=== PATIENT | female | born 1960 | race Caucasian/White ===

== ENCOUNTER 2017-03-01 13:40 | Emergency (ER) | payer MEDICARE, OTHER ==
[~2017-03-01] VITALS: Ht 157.4 cm; Wt 104.3 kg
[2017-03-01 14:20] LABS: BASO # 0.1 10*3/uL (0.0-0.1); BASO % 0.9 % (0.0-1.0); EOS # 0.2 10*3/uL (0.0-0.4); EOS % 2.2 % (1.0-4.0); HEMATOCRIT 39.8 % (37.0-47.0); HEMOGLOBIN 12.4 g/dl (12.0-16.0); LYMPH # 2.2 10*3/uL (1.3-4.4); LYMPH % 25.4 % (27.0-41.0); MEAN CELL VOLUME 83.3 fl (81.0-99.0); MEAN CORPUSCULAR HGB 25.9 pg (27.0-31.0); MEAN CORPUSCULAR HGB CONC 31.2 g/dl (33.0-37.0); MEAN PLATELET VOLUME 10.3 fl (9.6-12.3); MONO # 0.5 10*3/uL (0.1-1.0); MONO % 5.2 % (3.0-9.0); NEUT # 5.7 10*3/uL (2.3-7.9); NEUT % 66.1 % (47.0-73.0); PLATELET COUNT AUTOMATED 279 10*3/uL (130-400); RED BLOOD COUNT 4.78 10*6/uL (4.10-5.10); RED CELL DISTRI WIDTH 13.9 % (0-14.5); WHITE BLOOD COUNT 8.6 10*3/uL (4.8-10.8)
[2017-03-01 14:28] LABS: ACT PARTIAL THROMBO TIME 24.6 SECONDS (20.8-31.5)
[2017-03-01 14:36] LABS: ALBUMIN 3.3 gm/dl (3.1-4.5); ALKALINE PHOSPHATASE 109 U/L (45-117); BUN 18 mg/dl (7-24); CHLORIDE 104 mmol/L (98-107); CREATININE 0.67 mg/dL (0.55-1.02); POTASSIUM 3.9 mmol/L (3.5-5.1); SGOT/AST 25 IU/L (3-35); SGPT/ALT 44 U/L (12-78); SODIUM 138 mmol/L (136-145); TOTAL PROTEIN 6.9 gm/dL (6.4-8.2)
[2017-03-01 14:40] LABS: TROPONIN I < 0.015 ng/ml (<0.045)
== END 2017-03-01 23:40 | disposition left against medical advice (07) ==
LOC: ED 13:40
PROVIDERS: Internal Medicine
DX: R07.9 Chest pain, unspecified (principal); R00.2 Palpitations; F17.200 Nicotine dependence, unspecified, uncomplicated

== ENCOUNTER 2017-05-13 18:31 | Emergency (ER) | payer MEDICARE, OTHER ==
[~2017-05-13] VITALS: Ht 157.4 cm; Wt 99.8 kg
== END 2017-05-13 21:28 | disposition home or self-care (01) ==
LOC: ED 18:31
DX: S80.01XA Contusion of right knee, initial encounter (principal); S70.01XA Contusion of right hip, initial encounter; S50.01XA Contusion of right elbow, initial encounter; S30.0XXA Contusion of lower back and pelvis, initial encounter; F17.200 Nicotine dependence, unspecified, uncomplicated; Z88.2 Allergy status to sulfonamides; Z88.5 Allergy status to narcotic agent; W10.8XXA Fall (on) (from) other stairs and steps, initial encounter; Y93.89 Activity, other specified; Y92.89 Other specified places as the place of occurrence of the external cause; Y99.8 Other external cause status

== ENCOUNTER 2018-03-16 18:48 | Emergency (ER) | payer MEDICARE, MEDICAID ==
[~2018-03-16] VITALS: Ht 160 cm; Wt 81.2 kg
[2018-03-16 19:17] LABS: BASO # 0.1 10*3/uL (0.0-0.1); BASO % 0.7 % (0.0-1.0); EOS # 0.2 10*3/uL (0.0-0.4); EOS % 2.3 % (1.0-4.0); HEMATOCRIT 42.7 % (37.0-47.0); HEMOGLOBIN 13.5 g/dl (12.0-16.0); LYMPH # 2.5 10*3/uL (1.3-4.4); LYMPH % 25.3 % (27.0-41.0); MEAN CELL VOLUME 85.6 fl (81.0-99.0); MEAN CORPUSCULAR HGB 27.1 pg (27.0-31.0); MEAN CORPUSCULAR HGB CONC 31.6 g/dl (33.0-37.0); MEAN PLATELET VOLUME 10.1 fl (9.6-12.3); MONO # 0.6 10*3/uL (0.1-1.0); NEUT # 6.4 10*3/uL (2.3-7.9); NEUT % 65.5 % (47.0-73.0); PLATELET COUNT AUTOMATED 317 10*3/uL (130-400); RED BLOOD COUNT 4.99 10*6/uL (4.10-5.10); RED CELL DISTRI WIDTH 13.9 % (0-14.5); WHITE BLOOD COUNT 9.7 10*3/uL (4.8-10.8)
[2018-03-16 19:32] LABS: ALKALINE PHOSPHATASE 80 U/L (45-117); BUN 13 mg/dl (7-24); CHLORIDE 103 mmol/L (98-107); CREATININE 0.64 mg/dL (0.55-1.02); POTASSIUM 3.5 mmol/L (3.5-5.1); SGOT/AST 14 IU/L (3-35); SGPT/ALT 16 U/L (12-78); SODIUM 137 mmol/L (136-145); TOTAL PROTEIN 6.9 gm/dL (6.4-8.2)
[2018-03-16 19:43] LABS: ACETAMINOPHEN (TYLENOL) < 5.0 ug/ml (10-30); ETHYL ALCOHOL < 3.0 mg/dl (<3)
[2018-03-16 20:33] LABS: BILIRUBIN NEGATIVE (NEGATIVE); BLOOD NEGATIVE (NEGATIVE); CLARITY CLEAR (CLEAR); COLOR YELLOW (YELLOW); GLUCOSE NEGATIVE (NEGATIVE); KETONE NEGATIVE (NEGATIVE); LEUKO ESTERASE NEGATIVE (NEGATIVE); NITRITE NEGATIVE (NEGATIVE); UROBILINOGEN 0.2 E.U./dl (0.2-1.0)
[2018-03-16 20:40] LABS: URINE AMPHETAMINES < 1000 (1000ng/ml); URINE BARBITURATES < 200 (200ng/ml); URINE BENZODIAZEPINES < 200 (200ng/ml); URINE CANNABINOIDS (THC) < 50 (50ng/ml); URINE COCAINE < 300 (300ng/ml); URINE METHADONE < 300 (300ng/ml); URINE OPIATES < 300 (300ng/ml)
[2018-03-16 20:41] LABS: URINE PHENCYCLIDINE < 25 (25ng/ml)
[2018-03-16 20:56] LABS: BACTERIA TRACE; EPITHELIAL CELLS 0-2; WBC 0-2 wbc/hpf (0-5)
[2018-03-16] MEDS ORDERED: DEXILANT60 M1 PO (21:48)
[2018-03-16] MEDS ORDERED: ROSUVASTATIN CA20 MG PO (21:49)
[2018-03-16] MEDS ORDERED: VENLAFAXINE H37.5 M5 PO (21:49)
[2018-03-16] MEDS ORDERED: AMITRIPTYLINE25 MG PO (21:50)
[2018-03-16] MEDS ORDERED: ROPINIROLE HYDRO3 MG PO (21:51)
[2018-03-16] MEDS ORDERED: COMBIVENT RESPIM4 GM INH (22:40)
[2018-03-16] MEDS ORDERED: POTASSIUM CITR10 ME1 PO (22:40)
[2018-03-16] MEDS ORDERED: CYCLOBENZAPRINE10 MG PO (22:44)
[2018-03-16] MEDS ORDERED: DICLOFENAC SOD50 MG PO (22:44)
[2018-03-16] MEDS ORDERED: DONEPEZIL HCL10 MG PO (22:45)
[2018-03-16] MEDS ORDERED: GLUCOPHAGE500 M1 PO (22:46)
[2018-03-16] MEDS ORDERED: JANUVIA100 MG PO (22:46)
[2018-03-16] MEDS ORDERED: BUPROPION HYDR100 MG PO (22:47)
== END 2018-03-16 23:31 | disposition home or self-care (01) ==
LOC: ED 18:48
PROVIDERS: Nurse Practitioner Family
DX: F32.9 Major depressive disorder, single episode, unspecified (principal); R45.851 Suicidal ideations; F03.90 Unspecified dementia, unspecified severity, without behavioral disturbance, psychotic disturbance, mood disturbance, and anxiety; Z88.2 Allergy status to sulfonamides; Z91.041 Radiographic dye allergy status; Z88.6 Allergy status to analgesic agent; Z88.5 Allergy status to narcotic agent

== ENCOUNTER 2018-03-16 22:17 | Inpatient (IN) | payer MEDICARE, MEDICAID ==
[~2018-03-16] VITALS: Ht 157.5 cm; Wt 78.5 kg
--- NOTE | ~2018-03-16 | DS ---
[place], [place] DISCHARGE SUMMARY NAME: CAROLE RODRIGUEZ UNIT #: [id number] ROOM: 312 DOCTOR: WHIT SMITH MD BIRTHDATE: [birth year] DOS: 03/19/2018 CHIEF COMPLAINT: "I am standing on shaky ground today." HISTORY OF PRESENT ILLNESS: This is a 57-year-old female who presented to the Emergency Room at [facility] with a complaint of increased depression. The patient reported to the Emergency Room physicians that she has been homeless and living in her car since 10/2017. She did admit to feeling more depressed than usual and feeling hopeless about the future. The patient ultimately was pink slipped well in the Emergency Room because of the depression, homelessness and possible suicidal ideation as well as a history of some cognitive decline. SUMMARY OF HOSPITAL COURSE: The patient was admitted to the hospital where routine screening examinations were done and they were essentially normal. The patient came in on a rather complicated psychotropic regimen that included 3 antidepressants being Effexor, Wellbutrin and Elavil. These were all stopped by Sil Garcia, nurse practitioner who instead simplified her regimen by starting her on Remeron 15 mg at bedtime. Additionally, her Aricept was discontinued in lieu of Exelon patch. The patient responded to this well and also did make some headway in being able to find housing as well as a possible job in [place] through a friend of hers that was able to also promise her housing if she moved to [place]. The patient had voiced a willingness and a readiness to return home stating that she had things to do, especially an appointment to fix her car, so she will be able to drive at the [place]. She convincingly denied suicidal thoughts, homicidal thoughts, or self-injurious thoughts and was very forward thinking in her plans. She also convincingly denied any medication side effects and noted good sleep and appetite, did not have sedation or somnolence. She was discharged then to return home on 03/19/2018. MENTAL STATUS AT DISCHARGE: She is alert and oriented with time gaps. Mood does seem to be strongly trending towards euthymia. Affect is more appropriate. There is no sophie or hypomania. There is no gross psychosis. Short-term memory has mild gaps, otherwise she is intact. PLAN: I will go ahead and print her scripts and send with her home. She will have aftercare per [facility]. [place], [place] DISCHARGE SUMMARY NAME: CAROLE RODRIGUEZ UNIT #: [id number] ROOM: 312 DOCTOR: WHIT SMITH MD BIRTHDATE: [birth year] WHIT SMITH MD CM:DISCHARG 4 3 WHIT SMITH MD 03/19/18922 interface
[~2018-03-16 22:17] MED LIST: AMITRIPTYLINE25 MG PO; DEXILANT60 M1 PO; ROPINIROLE HYDRO3 MG PO; ROSUVASTATIN CA20 MG PO; VENLAFAXINE H37.5 M5 PO
[2018-03-16] MEDS ORDERED: POTASSIUM CITR10 ME1 PO (22:40)
[2018-03-16] MEDS ORDERED: COMBIVENT RESPIM4 GM INH (22:40)
[2018-03-16] MEDS ORDERED: CYCLOBENZAPRINE10 MG PO (22:44)
[2018-03-16] MEDS ORDERED: DICLOFENAC SOD50 MG PO (22:44)
[2018-03-16] MEDS ORDERED: DONEPEZIL HCL10 MG PO (22:45)
[2018-03-16] MEDS ORDERED: GLUCOPHAGE500 M1 PO (22:46)
[2018-03-16] MEDS ORDERED: JANUVIA100 MG PO (22:46)
[2018-03-16] MEDS ORDERED: BUPROPION HYDR100 MG PO (22:47)
[2018-03-16 23:52] VITALS: BP 135/89
[2018-03-17 00:21] VITALS: BP 135/89
[2018-03-17 06:26] LABS: CHOLESTEROL 236 mg/dL (<200); HDL CHOLESTEROL 37 mg/dl (40-60); LDL CHOLESTEROL 173 mg/dL (9-159); TRIGLYCERIDES 131 mg/dl (<150); VLDL CHOLESTEROL 26 mg/dL (6-40)
[2018-03-17 07:32] VITALS: BP 127/73
[2018-03-17 07:42] LABS: VITAMIN D, 25-HYDROXY 42.2 ng/mL (30-100)
[2018-03-17 19:34] VITALS: BP 133/87
[2018-03-18 07:17] VITALS: BP 134/74
[2018-03-18 20:00] VITALS: BP 112/71
[2018-03-19 08:00] VITALS: BP 127/76
[2018-03-19] MEDS ORDERED: MIRTAZAPINE15 M2 PO (09:09)
[2018-03-19] MEDS ORDERED: RIVASTIGMINE1 EAC1 T (09:09)
== END 2018-03-19 13:46 | disposition home or self-care (01) | DRG 885 ==
LOC: 3N 22:17
PROVIDERS: Registered Nurse
DX: F33.2 Major depressive disorder, recurrent severe without psychotic features (principal); R45.851 Suicidal ideations; F03.91 Unspecified dementia, unspecified severity, with behavioral disturbance; D83.9 Common variable immunodeficiency, unspecified; E44.0 Moderate protein-calorie malnutrition; G43.909 Migraine, unspecified, not intractable, without status migrainosus; J44.9 Chronic obstructive pulmonary disease, unspecified; K21.9 Gastro-esophageal reflux disease without esophagitis; G25.81 Restless legs syndrome; E78.5 Hyperlipidemia, unspecified; G47.33 Obstructive sleep apnea (adult) (pediatric); E66.9 Obesity, unspecified; E11.8 Type 2 diabetes mellitus with unspecified complications; I10 Essential (primary) hypertension; Z96.651 Presence of right artificial knee joint; Z59.0 Homelessness; Z79.899 Other long term (current) drug therapy; Z88.2 Allergy status to sulfonamides; Z88.6 Allergy status to analgesic agent; Z88.8 Allergy status to other drugs, medicaments and biological substances; Z91.041 Radiographic dye allergy status; Z99.81 Dependence on supplemental oxygen; Z91.81 History of falling; Z98.891 History of uterine scar from previous surgery

== ENCOUNTER 2018-04-27 01:04 | Emergency (ER) | payer MEDICARE, MEDICAID ==
[~2018-04-27] VITALS: Ht 157.4 cm; Wt 72.6 kg
[~2018-04-27 01:04] MED LIST changes: +ANUSOL-HC25 MG R; +BUPROPION HYDR100 MG PO; +COLACE100 MG PO; +COMBIVENT RESPIM4 GM INH; +CYCLOBENZAPRINE10 MG PO; +DICLOFENAC SOD50 MG PO; +DONEPEZIL HCL10 MG PO; +GLUCOPHAGE500 M1 PO; +JANUVIA100 MG PO; +MIRTAZAPINE15 M2 PO; +POTASSIUM CITR10 ME1 PO; +RIVASTIGMINE1 EAC1 T
[2018-04-27] MEDS ORDERED: ATARAX,VISTARIL50 MG PO (02:28)
[2018-04-27] MEDS ORDERED: NYSTATIN CREAM15 GM T (02:30)
[2018-04-27] MEDS ORDERED: FLUCONAZOLE100 MG PO (02:30)
[2018-06-06] MEDS ORDERED: TESSALON PERLE100 MG PO (03:18)
== END 2018-04-27 03:03 | disposition home or self-care (01) ==
LOC: ED 01:04
DX: B35.3 Tinea pedis (principal); J44.9 Chronic obstructive pulmonary disease, unspecified; E11.9 Type 2 diabetes mellitus without complications; I10 Essential (primary) hypertension; E78.5 Hyperlipidemia, unspecified; E66.9 Obesity, unspecified; G43.909 Migraine, unspecified, not intractable, without status migrainosus; K21.9 Gastro-esophageal reflux disease without esophagitis; Z88.2 Allergy status to sulfonamides; Z88.6 Allergy status to analgesic agent; Z88.8 Allergy status to other drugs, medicaments and biological substances; Z79.899 Other long term (current) drug therapy; Z59.0 Homelessness

== ENCOUNTER 2018-05-04 22:48 | Inpatient (IN) | payer MEDICARE, MEDICAID ==
[~2018-05-04] VITALS: Ht 157.4 cm; Wt 78.2 kg
[~2018-05-04 22:48] MED LIST changes: +ATARAX,VISTARIL50 MG PO; +FLUCONAZOLE100 MG PO; +NYSTATIN CREAM15 GM T
[2018-05-04 22:51] VITALS: BP 132/62
[2018-05-05 00:02] LABS: BASO # 0.1 10*3/uL (0.0-0.1); BASO % 0.6 % (0.0-1.0); EOS # 0.2 10*3/uL (0.0-0.4); EOS % 1.2 % (1.0-4.0); HEMATOCRIT 45.4 % (37.0-47.0); HEMOGLOBIN 14.3 g/dl (12.0-16.0); LYMPH # 3.8 10*3/uL (1.3-4.4); LYMPH % 24.4 % (27.0-41.0); MEAN CELL VOLUME 85.3 fl (81.0-99.0); MEAN CORPUSCULAR HGB 26.9 pg (27.0-31.0); MEAN CORPUSCULAR HGB CONC 31.5 g/dl (33.0-37.0); MEAN PLATELET VOLUME 10.3 fl (9.6-12.3); MONO # 0.8 10*3/uL (0.1-1.0); MONO % 5.4 % (3.0-9.0); NEUT # 10.5 10*3/uL (2.3-7.9); NEUT % 68.1 % (47.0-73.0); PLATELET COUNT AUTOMATED 352 10*3/uL (130-400); RED BLOOD COUNT 5.32 10*6/uL (4.10-5.10); RED CELL DISTRI WIDTH 14.3 % (0-14.5); WHITE BLOOD COUNT 15.5 10*3/uL (4.8-10.8)
--- NOTE | 2018-05-05 00:09 | NUR ---
[place] 2.[address] DR DOMINGO NOTIFIED
[2018-05-05 00:14] LABS: BILIRUBIN NEGATIVE (NEGATIVE); BLOOD 3+ (NEGATIVE); CLARITY CLOUDY (CLEAR); COLOR YELLOW (YELLOW); GLUCOSE NEGATIVE (NEGATIVE); KETONE TRACE (NEGATIVE); LEUKO ESTERASE 3+ (NEGATIVE); NITRITE POSITIVE (NEGATIVE); SPECIFIC GRAVITY 1.015 (1.005-1.030); UROBILINOGEN 0.2 E.U./dl (0.2-1.0)
[2018-05-05 00:17] LABS: ALBUMIN 3.4 gm/dl (3.1-4.5); ALKALINE PHOSPHATASE 101 U/L (45-117); BUN 17 mg/dl (7-24); CHLORIDE 102 mmol/L (98-107); CREATININE 0.87 mg/dL (0.55-1.02); POTASSIUM 4.3 mmol/L (3.5-5.1); SGOT/AST 22 IU/L (3-35); SGPT/ALT 17 U/L (12-78); SODIUM 138 mmol/L (136-145); TOTAL PROTEIN 7.7 gm/dL (6.4-8.2)
[2018-05-05 00:21] LABS: WBC TNTC wbc/hpf (0-5)
[2018-05-05 00:22] LABS: BACTERIA 1+; RBC TNTC rbc/hpf (0-2)
[2018-05-05 01:03] VITALS: BP 121/71
--- NOTE | 2018-05-05 02:17 | NUR ---
MED LIST INCOMPLETE PT REVIEW BY PT RECALL
[2018-05-05 02:36] LABS: BASO # 0.1 10*3/uL (0.0-0.1); BASO % 0.7 % (0.0-1.0); EOS # 0.2 10*3/uL (0.0-0.4); EOS % 1.5 % (1.0-4.0); HEMATOCRIT 41.2 % (37.0-47.0); HEMOGLOBIN 12.9 g/dl (12.0-16.0); LYMPH % 21.7 % (27.0-41.0); MEAN CELL VOLUME 85.5 fl (81.0-99.0); MEAN CORPUSCULAR HGB 26.8 pg (27.0-31.0); MEAN CORPUSCULAR HGB CONC 31.3 g/dl (33.0-37.0); MEAN PLATELET VOLUME 9.9 fl (9.6-12.3); MONO # 0.8 10*3/uL (0.1-1.0); MONO % 5.9 % (3.0-9.0); NEUT # 9.5 10*3/uL (2.3-7.9); PLATELET COUNT AUTOMATED 293 10*3/uL (130-400); RED BLOOD COUNT 4.82 10*6/uL (4.10-5.10); RED CELL DISTRI WIDTH 14.2 % (0-14.5); WHITE BLOOD COUNT 13.6 10*3/uL (4.8-10.8)
[2018-05-05 02:46] LABS: ACT PARTIAL THROMBO TIME 25.4 SECONDS (20.8-31.5)
[2018-05-05 03:05] LABS: ALBUMIN 3.2 gm/dl (3.1-4.5); ALKALINE PHOSPHATASE 78 U/L (45-117); BUN 13 mg/dl (7-24); CHLORIDE 109 mmol/L (98-107); CHOLESTEROL 138 mg/dL (<200); CREATININE 0.66 mg/dL (0.55-1.02); FREE T4 1.06 ng/dl (0.76-1.46); HDL CHOLESTEROL 40 mg/dl (40-60); LDL CHOLESTEROL 71 mg/dL (9-159); PHOSPHOROUS 3.6 mg/dL (2.5-4.9); SGOT/AST 16 IU/L (3-35); SGPT/ALT 16 U/L (12-78); SODIUM 144 mmol/L (136-145); TOTAL PROTEIN 6.7 gm/dL (6.4-8.2); TRIGLYCERIDES 133 mg/dl (<150); VLDL CHOLESTEROL 27 mg/dL (6-40)
[2018-05-05 03:15] VITALS: BP 138/70
--- NOTE | 2018-05-05 03:15 | NUR ---
A 57, admitted to , under the services of DEEP Lopez DO with a diagnosis of PYELONEPHRITIS. Chief complaint is HEMATURIA. Patient arrived via bed from ER. Monitor applied. Initial assessment completed. Vital signs taken and recorded. DEEP LOPEZ DO notified of admission to the unit. Orders received. See assessment for past medical history, medications and allergies. Patient and/or family oriented to unit. [facility] visitation policy reviewed. Clothing/patient valuable form completed. GAMAL ATWOOD
--- NOTE | 2018-05-05 04:00 | NUR ---
DR TRENT NOTIFIED THAT PT MED REC IS UP TO DATE PER PT. PT IS ALERT WITH CONFUSION AND APPEARS UNSURE OF SOME OF HER MEDICATIONS. PHYSICIAN REQUESTS THAT AM NURSE CONTACT PT PHARMACY TO CONFIRM MEDICATIONS. WILL PASS ON TO AM NURSE.
[2018-05-05] MEDS ORDERED: RESTORIL15 MG PO (04:15)
[2018-05-05] MEDS ORDERED: AMITRIPTYLINE25 MG PO (04:15)
[2018-05-05 12:00] VITALS: BP 113/67
--- NOTE | 2018-05-05 15:15 | NUR ---
PT LEFT AMA
[2018-06-06] MEDS ORDERED: TESSALON PERLE100 MG PO (03:18)
== END 2018-05-05 15:15 | disposition left against medical advice (07) | DRG 872 ==
LOC: ED 22:48 → EDHOLD 05-05 01:59 → 4E 05-05 02:57
PROVIDERS: Emergency Medicine; Family Medicine; ADMIT Emergency Medicine
DX: A41.9 Sepsis, unspecified organism (principal); E44.0 Moderate protein-calorie malnutrition; N12 Tubulo-interstitial nephritis, not specified as acute or chronic; J44.9 Chronic obstructive pulmonary disease, unspecified; F03.90 Unspecified dementia, unspecified severity, without behavioral disturbance, psychotic disturbance, mood disturbance, and anxiety; K21.9 Gastro-esophageal reflux disease without esophagitis; E78.5 Hyperlipidemia, unspecified; R41.89 Other symptoms and signs involving cognitive functions and awareness; N20.0 Calculus of kidney; Z53.21 Procedure and treatment not carried out due to patient leaving prior to being seen by health care provider; G43.909 Migraine, unspecified, not intractable, without status migrainosus; G47.33 Obstructive sleep apnea (adult) (pediatric); G25.81 Restless legs syndrome; F17.210 Nicotine dependence, cigarettes, uncomplicated; E11.65 Type 2 diabetes mellitus with hyperglycemia; Z71.6 Tobacco abuse counseling; Z88.2 Allergy status to sulfonamides; Z88.5 Allergy status to narcotic agent; Z88.6 Allergy status to analgesic agent; Z88.8 Allergy status to other drugs, medicaments and biological substances; Z91.041 Radiographic dye allergy status; Z99.89 Dependence on other enabling machines and devices; Z68.31 Body mass index [BMI] 31.0-31.9, adult

== ENCOUNTER 2018-05-31 17:31 | Emergency (ER) | payer MEDICARE, MEDICAID ==
[~2018-05-31] VITALS: Ht 157.4 cm; Wt 72.6 kg
[~2018-05-31 17:31] MED LIST changes: +RESTORIL15 MG PO
[2018-05-31 18:21] LABS: BASO # 0.1 10*3/uL (0.0-0.1); BASO % 0.6 % (0.0-1.0); EOS # 0.3 10*3/uL (0.0-0.4); EOS % 1.9 % (1.0-4.0); HEMATOCRIT 42.2 % (37.0-47.0); HEMOGLOBIN 13.4 g/dl (12.0-16.0); LYMPH # 2.7 10*3/uL (1.3-4.4); LYMPH % 19.5 % (27.0-41.0); MEAN CELL VOLUME 85.1 fl (81.0-99.0); MEAN CORPUSCULAR HGB CONC 31.8 g/dl (33.0-37.0); MEAN PLATELET VOLUME 9.7 fl (9.6-12.3); MONO # 0.7 10*3/uL (0.1-1.0); MONO % 4.8 % (3.0-9.0); NEUT % 72.9 % (47.0-73.0); PLATELET COUNT AUTOMATED 331 10*3/uL (130-400); RED BLOOD COUNT 4.96 10*6/uL (4.10-5.10); RED CELL DISTRI WIDTH 14.5 % (0-14.5); WHITE BLOOD COUNT 13.7 10*3/uL (4.8-10.8)
[2018-05-31 18:46] LABS: ALBUMIN 3.3 gm/dl (3.1-4.5); ALKALINE PHOSPHATASE 97 U/L (45-117); BUN 16 mg/dl (7-24); CHLORIDE 103 mmol/L (98-107); CREATININE 0.64 mg/dL (0.55-1.02); POTASSIUM 4.2 mmol/L (3.5-5.1); SGOT/AST 19 IU/L (3-35); SGPT/ALT 30 U/L (12-78); SODIUM 137 mmol/L (136-145); TOTAL PROTEIN 7.1 gm/dL (6.4-8.2)
[2018-05-31] MEDS ORDERED: PROVENTIL HFA6.7 GM INH (19:12)
[2018-05-31] MEDS ORDERED: AVPAK AZITHROM250 MG PO (19:12)
[2018-05-31] MEDS ORDERED: PREDNISONE50 MG PO (19:12)
[2018-06-06] MEDS ORDERED: TESSALON PERLE100 MG PO (03:18)
== END 2018-05-31 19:16 | disposition home or self-care (01) ==
LOC: ED 17:31
PROVIDERS: Nurse Practitioner Family
DX: J20.9 Acute bronchitis, unspecified (principal); E11.9 Type 2 diabetes mellitus without complications; J44.9 Chronic obstructive pulmonary disease, unspecified; F17.200 Nicotine dependence, unspecified, uncomplicated; Z98.890 Other specified postprocedural states; Z96.641 Presence of right artificial hip joint; Z79.899 Other long term (current) drug therapy; Z88.5 Allergy status to narcotic agent; Z88.6 Allergy status to analgesic agent; Z88.8 Allergy status to other drugs, medicaments and biological substances; Z88.2 Allergy status to sulfonamides

== ENCOUNTER 2018-06-28 00:28 | Emergency (ER) | payer MEDICARE, MEDICAID ==
[~2018-06-28] VITALS: Ht 157.4 cm; Wt 77.1 kg
--- NOTE | ~2018-06-28 | EKG ---
[place], [place] ELECTROCARDIOGRAM REPORT NAME: CAROLE RODRIGUEZ UNIT #: [id number] ROOM: DOCTOR: EPIPHANY DRAFT REPORT BIRTHDATE: [birth year] [facility] Test Date: 2018-06-28 Test Time: 00:44:11 Pat Name: CAROLE RODRIGUEZ Department: Room: Gender: F Automatic Developer: Laura Weathers : 1960 Requested By: LORENE SHANNON Order Number: [id number] Reading MD: Torres Chu MD Measurements Intervals [place] Rate: 88 P: 61 WV: 152 QRS: 31 QRSD: 88 T: 20 QT: 345 QTc: 418 Interpretive Statements Sinus rhythm Baseline wander in lead(s) V4,V5,V6 Electronically Signed On 06-30-2018 7:00:57 PDT by Torres Chu MD CM:EKGRPT:ELECTROCARDIOGRAM REPORT [id number] LORENE SHANNON MD EPIPHANY DRAFT REPORT LORENE SHANNON MD
--- NOTE | ~2018-06-28 | EKG ---
[place], [place] ELECTROCARDIOGRAM REPORT NAME: CAROLE RODRIGUEZ UNIT #: [id number] ROOM: DOCTOR: EPIPHANY DRAFT REPORT BIRTHDATE: [birth year] [facility] Test Date: 2018-06-28 Test Time: 03:38:58 Pat Name: CAROLE RODRIGUEZ Department: er Room: 5 Gender: F Desizing Machine Offbearer: Dennise Martínez : 1960 Requested By: LORENE SHANNON Order Number: [id number] Reading MD: Torres Chu MD Measurements Intervals [place] Rate: 77 P: 74 OR: 154 QRS: 51 QRSD: 92 T: 14 QT: 365 QTc: 414 Interpretive Statements Sinus rhythm Nonspecific ST T changes Electronically Signed On 06-30-2018 7:01:16 PDT by Torres Chu MD CM:EKGRPT:ELECTROCARDIOGRAM REPORT [id number] LORENE SHANNON MD EPIPHANY DRAFT REPORT LORENE SHANNON MD
[~2018-06-28 00:28] MED LIST changes: +AVPAK AZITHROM250 MG PO; +PREDNISONE50 MG PO; +PROVENTIL HFA6.7 GM INH; +TESSALON PERLE100 MG PO
[2018-06-28 00:52] LABS: HEMATOCRIT 45.8 % (37.0-47.0); HEMOGLOBIN 14.4 g/dl (12.0-16.0); MEAN CELL VOLUME 85.9 fl (81.0-99.0); MEAN CORPUSCULAR HGB CONC 31.4 g/dl (33.0-37.0); MEAN PLATELET VOLUME 9.8 fl (9.6-12.3); PLATELET COUNT AUTOMATED 398 10*3/uL (130-400); RED BLOOD COUNT 5.33 10*6/uL (4.10-5.10); RED CELL DISTRI WIDTH 14.6 % (0-14.5); WHITE BLOOD COUNT 14.3 10*3/uL (4.8-10.8)
[2018-06-28 01:03] LABS: ACT PARTIAL THROMBO TIME 21.1 SECONDS (20.8-31.5)
[2018-06-28 01:09] LABS: ALKALINE PHOSPHATASE 91 U/L (45-117); BUN 23 mg/dl (7-24); CHLORIDE 100 mmol/L (98-107); CREATININE 0.62 mg/dL (0.55-1.02); POTASSIUM 4.3 mmol/L (3.5-5.1); SGOT/AST 12 IU/L (3-35); SGPT/ALT 17 U/L (12-78); SODIUM 139 mmol/L (136-145)
[2018-06-28 01:11] LABS: TROPONIN I < 0.015 ng/ml (<0.045)
[2018-06-28 01:25] LABS: BASOPHILS 2 % (0-1); PLATELET SUFFICIENCY NORMAL (NORMAL); TOTAL CELLS COUNTED 100 #CELLS
[2018-06-28] MEDS ORDERED: DEXILANT60 M1 PO (04:07)
== END 2018-06-28 04:19 | disposition home or self-care (01) ==
LOC: ED 00:28
PROVIDERS: Emergency Medicine Emergency Medical Services
DX: K21.9 Gastro-esophageal reflux disease without esophagitis (principal); J44.9 Chronic obstructive pulmonary disease, unspecified; E11.9 Type 2 diabetes mellitus without complications; E78.5 Hyperlipidemia, unspecified; I10 Essential (primary) hypertension; G43.909 Migraine, unspecified, not intractable, without status migrainosus; F17.200 Nicotine dependence, unspecified, uncomplicated; Z88.2 Allergy status to sulfonamides; Z88.6 Allergy status to analgesic agent; Z88.5 Allergy status to narcotic agent; Z88.8 Allergy status to other drugs, medicaments and biological substances; Z87.442 Personal history of urinary calculi; Z79.84 Long term (current) use of oral hypoglycemic drugs; Z79.899 Other long term (current) drug therapy

== ENCOUNTER 2020-05-05 22:50 | Emergency (ER) | payer MEDICARE, MEDICAID | END 2020-05-06 | disposition home or self-care (01) | LOC: ED 22:50 | DX: R06.02 Shortness of breath (principal); T50.905A Adverse effect of unspecified drugs, medicaments and biological substances, initial encounter; R07.89 Other chest pain; F32.9 Major depressive disorder, single episode, unspecified; E11.9 Type 2 diabetes mellitus without complications; I10 Essential (primary) hypertension; F03.90 Unspecified dementia, unspecified severity, without behavioral disturbance, psychotic disturbance, mood disturbance, and anxiety; J44.9 Chronic obstructive pulmonary disease, unspecified; F17.200 Nicotine dependence, unspecified, uncomplicated; Z88.2 Allergy status to sulfonamides; Z88.5 Allergy status to narcotic agent; Z88.6 Allergy status to analgesic agent; Z79.899 Other long term (current) drug therapy; Z79.2 Long term (current) use of antibiotics; Z98.890 Other specified postprocedural states; Z96.651 Presence of right artificial knee joint; Z87.442 Personal history of urinary calculi; Y92.89 Other specified places as the place of occurrence of the external cause ==

== ENCOUNTER → 2020-05-07 | Outpatient (CLI) | payer OTHER | END | disposition home or self-care (01) | LOC: COVID19 16:18 | PROVIDERS: ATTEND Internal Medicine | DX: Z20.822 Contact with and (suspected) exposure to COVID-19 (principal) ==

== ENCOUNTER → 2020-08-28 | Outpatient (CLI) | payer OTHER | END | disposition home or self-care (01) | LOC: COVID19 14:50 | PROVIDERS: ATTEND Ophthalmology | DX: Z01.812 Encounter for preprocedural laboratory examination (principal); Z20.822 Contact with and (suspected) exposure to COVID-19 ==

== ENCOUNTER → 2020-09-02 | Day surgery (SDC) | payer OTHER ==
[~2020-09-02] VITALS: Ht 157.4 cm; Wt 88.9 kg
[2020-09-02 06:45] VITALS: BP 156/86
[2020-09-02 08:04] VITALS: BP 116/86; BP 166/86
[2020-09-02 08:19] VITALS: BP 116/81
[2020-09-02 08:34] VITALS: BP 129/77
== END | disposition home or self-care (01) ==
LOC: SDC 08-28 09:30
PROVIDERS: ATTEND Ophthalmology
DX: H25.11 Age-related nuclear cataract, right eye (principal); F32.9 Major depressive disorder, single episode, unspecified; I10 Essential (primary) hypertension; E11.9 Type 2 diabetes mellitus without complications; F41.9 Anxiety disorder, unspecified; F17.210 Nicotine dependence, cigarettes, uncomplicated; Z98.890 Other specified postprocedural states; Z88.2 Allergy status to sulfonamides; Z88.5 Allergy status to narcotic agent; Z88.8 Allergy status to other drugs, medicaments and biological substances; Z79.899 Other long term (current) drug therapy

== ENCOUNTER → 2020-10-02 | Outpatient (CLI) | payer OTHER | END | disposition home or self-care (01) | LOC: COVID19 14:09 | PROVIDERS: ATTEND Ophthalmology | DX: Z01.812 Encounter for preprocedural laboratory examination (principal); Z20.822 Contact with and (suspected) exposure to COVID-19 ==

== ENCOUNTER → 2020-10-07 | Day surgery (SDC) | payer OTHER ==
[~2020-10-07] VITALS: Ht 157.4 cm; Wt 88.9 kg
[2020-10-07 07:10] VITALS: BP 134/67
[2020-10-07 07:59] VITALS: BP 133/67
[2020-10-07 08:14] VITALS: BP 141/75
[2020-10-07 08:28] VITALS: BP 138/72
== END | disposition home or self-care (01) ==
LOC: SDC 10-02 08:00
PROVIDERS: ATTEND Ophthalmology
DX: H25.12 Age-related nuclear cataract, left eye (principal); I10 Essential (primary) hypertension; E11.9 Type 2 diabetes mellitus without complications; F32.9 Major depressive disorder, single episode, unspecified; I25.2 Old myocardial infarction; J45.909 Unspecified asthma, uncomplicated; Z88.5 Allergy status to narcotic agent; Z88.6 Allergy status to analgesic agent; Z79.899 Other long term (current) drug therapy; Z86.73 Personal history of transient ischemic attack (TIA), and cerebral infarction without residual deficits

== ENCOUNTER → 2020-12-16 | Outpatient (CLI) | payer OTHER | END | disposition home or self-care (01) | LOC: LAB 14:59 | PROVIDERS: ATTEND Internal Medicine Critical Care Medicine | DX: R53.83 Other fatigue (principal); D64.9 Anemia, unspecified ==

== ENCOUNTER → 2021-02-09 | Outpatient (CLI) | payer OTHER ==
[2021-02-09 17:17] LABS: BASO # 0.1 10*3/uL (0.0-0.1); BASO % 0.7 % (0.0-1.0); EOS # 0.2 10*3/uL (0.0-0.4); EOS % 1.7 % (1.0-4.0); HEMATOCRIT 44.5 % (37.0-47.0); LYMPH # 3.1 10*3/uL (1.3-4.4); LYMPH % 29.2 % (27.0-41.0); MEAN CELL VOLUME 83.8 fl (81.0-99.0); MEAN CORPUSCULAR HGB 26.4 pg (27.0-31.0); MEAN CORPUSCULAR HGB CONC 31.5 g/dl (33.0-37.0); MEAN PLATELET VOLUME 9.8 fl (9.6-12.3); MONO # 0.6 10*3/uL (0.1-1.0); MONO % 5.2 % (3.0-9.0); NEUT # 6.6 10*3/uL (2.3-7.9); PLATELET COUNT AUTOMATED 351 10*3/uL (130-400); RED BLOOD COUNT 5.31 10*6/uL (4.10-5.10); RED CELL DISTRI WIDTH 14.4 % (0-14.5); WHITE BLOOD COUNT 10.5 10*3/uL (4.8-10.8)
[2021-02-09 17:29] LABS: ALKALINE PHOSPHATASE 93 U/L (45-117); BUN 13 mg/dl (7-24); CHLORIDE 105 mmol/L (98-107); CREATININE 0.62 mg/dL (0.55-1.02); LIPASE 315 U/L (73-393); POTASSIUM 4.2 mmol/L (3.5-5.1); SGOT/AST 15 IU/L (3-35); SGPT/ALT 27 U/L (12-78); SODIUM 138 mmol/L (136-145)
[2021-02-10 08:34] LABS: TOTAL PROTEIN 7.1 gm/dL (6.4-8.2)
== END | disposition home or self-care (01) ==
LOC: LAB 16:49
PROVIDERS: Internal Medicine Gastroenterology; ATTEND Nurse Practitioner Family
DX: R11.2 Nausea with vomiting, unspecified (principal); R10.9 Unspecified abdominal pain; K58.0 Irritable bowel syndrome with diarrhea; K21.9 Gastro-esophageal reflux disease without esophagitis; K57.92 Diverticulitis of intestine, part unspecified, without perforation or abscess without bleeding; K76.9 Liver disease, unspecified; K57.30 Diverticulosis of large intestine without perforation or abscess without bleeding; Z80.0 Family history of malignant neoplasm of digestive organs

== ENCOUNTER → 2021-02-15 | Outpatient (CLI) | payer OTHER | END | disposition home or self-care (01) | LOC: RAD 11:35 | PROVIDERS: ATTEND Internal Medicine | DX: J06.9 Acute upper respiratory infection, unspecified (principal) ==

== ENCOUNTER → 2021-05-10 | Outpatient (CLI) | payer OTHER | END | disposition home or self-care (01) | LOC: CARD 08:08 | PROVIDERS: ATTEND Internal Medicine Cardiovascular Disease | DX: G47.33 Obstructive sleep apnea (adult) (pediatric) (principal); R06.02 Shortness of breath; Z72.0 Tobacco use ==

== ENCOUNTER 2021-09-19 14:44 | Emergency (ER) | payer OTHER ==
[~2021-09-19] VITALS: Wt 99.8 kg
[2021-09-19 16:00] LABS: BASO # 0.1 10*3/uL (0.0-0.1); BASO % 0.7 % (0.0-1.0); EOS # 0.1 10*3/uL (0.0-0.4); EOS % 1.1 % (1.0-4.0); HEMATOCRIT 46.7 % (37.0-47.0); LYMPH # 1.8 10*3/uL (1.3-4.4); LYMPH % 14.9 % (27.0-41.0); MEAN CELL VOLUME 84.8 fl (81.0-99.0); MEAN CORPUSCULAR HGB CONC 30.6 g/dl (33.0-37.0); MEAN PLATELET VOLUME 9.8 fl (9.6-12.3); MONO # 0.6 10*3/uL (0.1-1.0); MONO % 4.8 % (3.0-9.0); NEUT # 9.5 10*3/uL (2.3-7.9); PLATELET COUNT AUTOMATED 323 10*3/uL (130-400); RED BLOOD COUNT 5.51 10*6/uL (4.10-5.10); RED CELL DISTRI WIDTH 13.4 % (0-14.5); WHITE BLOOD COUNT 12.2 10*3/uL (4.8-10.8)
[2021-09-19 16:13] LABS: BILIRUBIN Negative (Negative); BLOOD 1+ (Negative); CLARITY Clear (Clear); COLOR Yellow (Yellow); GLUCOSE 3+ (Negative); KETONE Trace (Negative); LEUKO ESTERASE Negative (Negative); NITRITE Negative (Negative); SPECIFIC GRAVITY 1.025 (1.001-1.030); UROBILINOGEN 0.2 E.U./dl (0.0-1.0)
[2021-09-19 16:15] LABS: ALKALINE PHOSPHATASE 117 U/L (45-117); BUN 17 mg/dl (7-24); CHLORIDE 101 mmol/L (98-107); POTASSIUM 4.2 mmol/L (3.5-5.1); SGOT/AST 14 IU/L (3-35); SGPT/ALT 19 U/L (12-78); SODIUM 138 mmol/L (136-145); TOTAL PROTEIN 6.7 gm/dL (6.4-8.2)
[2021-09-19 16:19] LABS: URINE AMPHETAMINES < 1000 (1000ng/ml); URINE BARBITURATES < 200 (200ng/ml); URINE BENZODIAZEPINES < 200 (200ng/ml); URINE CANNABINOIDS (THC) < 50 (50ng/ml); URINE COCAINE < 300 (300ng/ml); URINE METHADONE < 300 (300ng/ml); URINE OPIATES < 300 (300ng/ml)
[2021-09-19 16:23] LABS: RBC 16-20 rbc/hpf (0-2)
[2021-09-19 16:24] LABS: BACTERIA 1+; FINE GRANULAR CAST 0-2; MUCOUS 1+
[2021-09-19 16:25] LABS: URINE PHENCYCLIDINE < 25 (25ng/ml)
== END 2021-09-19 21:01 | disposition short-term general hospital (02) ==
LOC: ED 14:44
PROVIDERS: Emergency Medicine
DX: G40.909 Epilepsy, unspecified, not intractable, without status epilepticus (principal)

== ENCOUNTER → 2022-05-03 | Outpatient (CLI) | payer OTHER | END | disposition home or self-care (01) | LOC: RAD 14:31 | PROVIDERS: ATTEND Nurse Practitioner Family | DX: M79.671 Pain in right foot (principal) ==

== ENCOUNTER → 2022-08-23 | Outpatient (CLI) | payer OTHER | END | disposition home or self-care (01) | LOC: RAD 15:01 | PROVIDERS: ATTEND Nurse Practitioner Family | DX: M25.522 Pain in left elbow (principal) ==

== ENCOUNTER → 2022-09-29 | Outpatient (CLI) | payer OTHER ==
[2022-09-29 16:29] LABS: BASO # 0.1 10*3/uL (0.0-0.1); BASO % 0.6 % (0.0-1.0); EOS # 0.2 10*3/uL (0.0-0.4); EOS % 1.7 % (1.0-4.0); HEMATOCRIT 43.3 % (37.0-47.0); LYMPH # 2.5 10*3/uL (1.3-4.4); LYMPH % 20.1 % (27.0-41.0); MEAN CELL VOLUME 83.1 fl (81.0-99.0); MEAN CORPUSCULAR HGB 24.8 pg (27.0-31.0); MEAN CORPUSCULAR HGB CONC 29.8 g/dl (33.0-37.0); MEAN PLATELET VOLUME 9.7 fl (9.6-12.3); MONO # 0.9 10*3/uL (0.1-1.0); MONO % 7.1 % (3.0-9.0); NEUT # 8.7 10*3/uL (2.3-7.9); NEUT % 70.3 % (47.0-73.0); PLATELET COUNT AUTOMATED 366 10*3/uL (130-400); RED BLOOD COUNT 5.21 10*6/uL (4.10-5.10); RED CELL DISTRI WIDTH 14.5 % (0-14.5); WHITE BLOOD COUNT 12.4 10*3/uL (4.8-10.8)
[2022-09-29 17:08] LABS: ALKALINE PHOSPHATASE 115 U/L (46-116); BUN 13 mg/dl (9-23); CHLORIDE 103 mmol/L (98-107); POTASSIUM 4.1 mmol/L (3.4-5.1); SGPT/ALT 10 U/L (10-49); TOTAL PROTEIN 7.1 gm/dL (6.0-8.0)
== END | disposition home or self-care (01) ==
LOC: LAB 16:11
PROVIDERS: ATTEND Nurse Practitioner Family
DX: E11.9 Type 2 diabetes mellitus without complications (principal); R60.0 Localized edema; R06.02 Shortness of breath

== ENCOUNTER 2022-10-12 03:02 | Emergency (ER) | payer OTHER ==
[~2022-10-12] VITALS: Ht 167.6 cm; Wt 86.2 kg
[2022-10-12] MEDS ORDERED: HYDROCHLOROTH12.5 M2 PO (03:15)
[2022-10-12] MEDS ORDERED: ASPIRIN ADULT L81 M2 PO (03:16)
[2022-10-12] MEDS ORDERED: BUDESONIDE-FO10.2 G1 INH (03:17)
[2022-10-12] MEDS ORDERED: TRINTELLIX20 MG PO (03:17)
[2022-10-12] MEDS ORDERED: LEVETIRACETAM500 MG PO ×2 (03:19)
[2022-10-12 03:33] LABS: BASO # 0.1 10*3/uL (0.0-0.1); BASO % 0.7 % (0.0-1.0); EOS # 0.3 10*3/uL (0.0-0.4); HEMATOCRIT 42.7 % (37.0-47.0); LYMPH # 3.1 10*3/uL (1.3-4.4); LYMPH % 21.8 % (27.0-41.0); MEAN CELL VOLUME 78.5 fl (81.0-99.0); MEAN CORPUSCULAR HGB 24.6 pg (27.0-31.0); MEAN CORPUSCULAR HGB CONC 31.4 g/dl (33.0-37.0); MEAN PLATELET VOLUME 9.5 fl (9.6-12.3); MONO % 6.9 % (3.0-9.0); NEUT # 9.8 10*3/uL (2.3-7.9); NEUT % 68.3 % (47.0-73.0); PLATELET COUNT AUTOMATED 404 10*3/uL (130-400); RED BLOOD COUNT 5.44 10*6/uL (4.10-5.10); RED CELL DISTRI WIDTH 14.8 % (0-14.5); WHITE BLOOD COUNT 14.3 10*3/uL (4.8-10.8)
[2022-10-12 03:49] LABS: ACT PARTIAL THROMBO TIME 27.6 SECONDS (20.0-32.1)
[2022-10-12 03:56] LABS: ALKALINE PHOSPHATASE 111 U/L (46-116); BUN 18 mg/dl (9-23); CHLORIDE 97 mmol/L (98-107); LIPASE 46 U/L (12-53); POTASSIUM 3.6 mmol/L (3.4-5.1); SGPT/ALT 10 U/L (10-49); TOTAL PROTEIN 7.1 gm/dL (6.0-8.0)
[2022-10-12 04:00] LABS: BILIRUBIN Negative (Negative); BLOOD Negative (Negative); CLARITY Cloudy (Clear); COLOR Yellow (Yellow); GLUCOSE Negative (Negative); KETONE Negative (Negative); LEUKO ESTERASE 2+ (Negative); NITRITE Negative (Negative); PH 5.5 (4.5-8.0); UROBILINOGEN 0.2 E.U./dl (0.0-1.0)
[2022-10-12 04:18] LABS: WBC 21-30 wbc/hpf (0-5)
[2022-10-12 04:19] LABS: BACTERIA 1+
[2022-10-12] MEDS ORDERED: CIPRO500 MG PO (04:25)
== END 2022-10-12 04:31 | disposition home or self-care (01) ==
LOC: ED 03:02
PROVIDERS: Internal Medicine
DX: N39.0 Urinary tract infection, site not specified (principal); E16.2 Hypoglycemia, unspecified; E11.9 Type 2 diabetes mellitus without complications; I10 Essential (primary) hypertension; E78.5 Hyperlipidemia, unspecified; J44.9 Chronic obstructive pulmonary disease, unspecified; F17.200 Nicotine dependence, unspecified, uncomplicated; Z91.041 Radiographic dye allergy status; Z88.2 Allergy status to sulfonamides; Z88.6 Allergy status to analgesic agent; Z88.5 Allergy status to narcotic agent; Z79.899 Other long term (current) drug therapy; Z79.82 Long term (current) use of aspirin; Z96.651 Presence of right artificial knee joint; Z98.890 Other specified postprocedural states; Z96.21 Cochlear implant status; Z86.73 Personal history of transient ischemic attack (TIA), and cerebral infarction without residual deficits

== ENCOUNTER → 2022-10-31 | Outpatient (CLI) | payer OTHER ==
[~2022-10-31] MED LIST changes: +ASPIRIN ADULT L81 M2 PO; +BUDESONIDE-FO10.2 G1 INH; +CIPRO500 MG PO; +HYDROCHLOROTH12.5 M2 PO; +LEVETIRACETAM500 MG PO; +TRINTELLIX20 MG PO
== END | disposition home or self-care (01) ==
LOC: RAD 15:59
PROVIDERS: ATTEND Nurse Practitioner Family
DX: R05.9 Cough, unspecified (principal)

== ENCOUNTER 2022-12-13 21:01 | Emergency (ER) | payer OTHER | END 2022-12-13 21:40 | disposition left against medical advice (07) | LOC: ED 21:01 | DX: M79.10 Myalgia, unspecified site (principal); Z91.041 Radiographic dye allergy status; Z88.2 Allergy status to sulfonamides; Z88.5 Allergy status to narcotic agent; Z88.8 Allergy status to other drugs, medicaments and biological substances; Z88.6 Allergy status to analgesic agent; Z53.21 Procedure and treatment not carried out due to patient leaving prior to being seen by health care provider ==

== ENCOUNTER → 2023-01-25 | Outpatient (CLI) | payer OTHER | END | disposition home or self-care (01) | LOC: RAD/SH 12-06 03:38 | PROVIDERS: ATTEND Nurse Practitioner Family | DX: R13.10 Dysphagia, unspecified (principal) ==

== ENCOUNTER → 2023-06-29 | Outpatient (CLI) | payer OTHER | END | disposition home or self-care (01) | LOC: CT 02:03 | PROVIDERS: ATTEND Internal Medicine Critical Care Medicine | DX: J43.9 Emphysema, unspecified (principal); I25.10 Atherosclerotic heart disease of native coronary artery without angina pectoris; J98.11 Atelectasis; Z87.891 Personal history of nicotine dependence ==

== ENCOUNTER 2023-11-06 16:47 | Emergency (ER) | payer OTHER ==
[~2023-11-06] VITALS: Ht 157.4 cm; Wt 100.7 kg
== END 2023-11-06 18:50 | disposition home or self-care (01) ==
LOC: ED 16:47
DX: S66.310A Strain of extensor muscle, fascia and tendon of right index finger at wrist and hand level, initial encounter (principal); E78.5 Hyperlipidemia, unspecified; F32.A Depression, unspecified; E11.9 Type 2 diabetes mellitus without complications; I10 Essential (primary) hypertension; J45.909 Unspecified asthma, uncomplicated; F03.90 Unspecified dementia, unspecified severity, without behavioral disturbance, psychotic disturbance, mood disturbance, and anxiety; F17.200 Nicotine dependence, unspecified, uncomplicated; Z87.442 Personal history of urinary calculi; Z91.041 Radiographic dye allergy status; Z88.2 Allergy status to sulfonamides; Z88.6 Allergy status to analgesic agent; Z88.5 Allergy status to narcotic agent; Z88.8 Allergy status to other drugs, medicaments and biological substances; Z96.651 Presence of right artificial knee joint; Z90.710 Acquired absence of both cervix and uterus; Z98.890 Other specified postprocedural states; Z90.49 Acquired absence of other specified parts of digestive tract; X58.XXXA Exposure to other specified factors, initial encounter; Y93.89 Activity, other specified; Y92.89 Other specified places as the place of occurrence of the external cause; Y99.8 Other external cause status

== ENCOUNTER → 2023-12-08 | Outpatient (CLI) | payer OTHER ==
[2023-12-08 11:48] LABS: CHOLESTEROL 174 mg/dL (<200); LDL CHOLESTEROL 98 mg/dL (9-159); TRIGLYCERIDES 100 mg/dl (<150)
== END | disposition home or self-care (01) ==
LOC: LAB 11:00
PROVIDERS: ATTEND Clinical Nurse Specialist
DX: E11.65 Type 2 diabetes mellitus with hyperglycemia (principal)

== ENCOUNTER → 2024-02-14 | Day surgery (SDC) | payer OTHER ==
[2024-02-08 09:00] VITALS: BP 129/74
[~2024-02-14] VITALS: Ht 157.4 cm; Wt 100.7 kg
[~2024-02-14] MED LIST changes: +Albuterol Sulf/Ipratropium 3 ML VIAL NEB ONE; +Albuterol Sulfate 1.25 MG/3 ML VIAL NEB ONE; +Albuterol Sulfate 2.5 MG/0.5 ML VIAL NEB ONE; +FUROSEMIDE20 M1 PO; +HUMALOG100 UNIT/1 SQ; +Lactated Ringer's Solution 1,000 ML IV SCH; +Lidocaine Hydrochloride 4% 5 ML AMP NEB ONE; +Lidocaine Hydrochloride 4% 5 ML AMP ONE; +POTASSIUM CITR15 ME1 PO; +PROPOFOL 200 MG/20 ML VIAL IV ONE; +SODIUM CHLORIDE 0.9% 500 ML IV ONE
[2024-02-14 08:57] VITALS: BP 131/64
[2024-02-14 10:03] VITALS: BP 142/82
[2024-02-14 10:21] VITALS: BP 137/70
[2024-02-14 10:33] VITALS: BP 126/68
[2024-02-15 16:07] LABS: ACID FAST SPEC PROCESSING Concentration (.)
== END | disposition home or self-care (01) ==
LOC: SDC 02-07 16:00
PROVIDERS: ATTEND Internal Medicine Critical Care Medicine
DX: R05.3 Chronic cough (principal); J44.9 Chronic obstructive pulmonary disease, unspecified; I10 Essential (primary) hypertension; E11.9 Type 2 diabetes mellitus without complications; E78.5 Hyperlipidemia, unspecified; G43.909 Migraine, unspecified, not intractable, without status migrainosus; F32.9 Major depressive disorder, single episode, unspecified; I25.10 Atherosclerotic heart disease of native coronary artery without angina pectoris; I25.2 Old myocardial infarction; I48.91 Unspecified atrial fibrillation; K21.9 Gastro-esophageal reflux disease without esophagitis; G47.33 Obstructive sleep apnea (adult) (pediatric); Z87.440 Personal history of urinary (tract) infections; Z98.891 History of uterine scar from previous surgery; Z96.651 Presence of right artificial knee joint; Z87.891 Personal history of nicotine dependence; Z87.442 Personal history of urinary calculi; Z98.890 Other specified postprocedural states; Z88.2 Allergy status to sulfonamides; Z91.041 Radiographic dye allergy status; Z88.5 Allergy status to narcotic agent; Z88.8 Allergy status to other drugs, medicaments and biological substances; Z79.899 Other long term (current) drug therapy

== ENCOUNTER 2024-07-20 13:08 | Emergency (ER) | payer OTHER ==
[~2024-07-20] VITALS: Ht 157.4 cm; Wt 99.8 kg
[~2024-07-20 13:08] MED LIST changes: -Albuterol Sulf/Ipratropium 3 ML VIAL NEB ONE; -Albuterol Sulfate 1.25 MG/3 ML VIAL NEB ONE; -Albuterol Sulfate 2.5 MG/0.5 ML VIAL NEB ONE; -Lactated Ringer's Solution 1,000 ML IV SCH; -Lidocaine Hydrochloride 4% 5 ML AMP NEB ONE; -Lidocaine Hydrochloride 4% 5 ML AMP ONE; -PROPOFOL 200 MG/20 ML VIAL IV ONE; -SODIUM CHLORIDE 0.9% 500 ML IV ONE
== END 2024-07-20 14:11 | disposition home or self-care (01) ==
LOC: ED 13:08
DX: S61.432A Puncture wound without foreign body of left hand, initial encounter (principal); S61.431A Puncture wound without foreign body of right hand, initial encounter; J44.9 Chronic obstructive pulmonary disease, unspecified; E11.9 Type 2 diabetes mellitus without complications; I10 Essential (primary) hypertension; E78.5 Hyperlipidemia, unspecified; F32.A Depression, unspecified; F41.9 Anxiety disorder, unspecified; F17.200 Nicotine dependence, unspecified, uncomplicated; Z91.041 Radiographic dye allergy status; Z88.2 Allergy status to sulfonamides; Z88.6 Allergy status to analgesic agent; Z88.5 Allergy status to narcotic agent; Z88.8 Allergy status to other drugs, medicaments and biological substances; Z79.899 Other long term (current) drug therapy; Z79.82 Long term (current) use of aspirin; Z98.890 Other specified postprocedural states; Z96.651 Presence of right artificial knee joint; Z90.711 Acquired absence of uterus with remaining cervical stump; X58.XXXA Exposure to other specified factors, initial encounter; Y93.89 Activity, other specified; Y92.89 Other specified places as the place of occurrence of the external cause; Y99.8 Other external cause status

== ENCOUNTER 2024-10-28 12:06 | Emergency (ER) | payer OTHER ==
[~2024-10-28] VITALS: Ht 157.4 cm; Wt 104.3 kg
[2024-10-28 12:53] LABS: BASO # 0.1 10*3/uL (0.0-0.1); BASO % 0.4 % (0.0-1.0); EOS # 0.3 10*3/uL (0.0-0.4); EOS % 2.1 % (1.0-4.0); MEAN CELL VOLUME 80.9 fl (81.0-99.0); MEAN CORPUSCULAR HGB 24.9 pg (27.0-31.0); MEAN PLATELET VOLUME 9.5 fl (9.6-12.3); MONO # 0.9 10*3/uL (0.1-1.0); MONO % 6.2 % (3.0-9.0); NEUT # 10.9 10*3/uL (2.3-7.9); NEUT % 76.5 % (47.0-73.0); NUCLEATED RED BLOOD CELL 0.0 % (0.0-0.0); NUCLEATED RED BLOOD CELL 0.0 10*3/uL (0.0-0.0); PLATELET COUNT AUTOMATED 368 10*3/uL (130-400); RED CELL DISTRI WIDTH 15.6 % (0-14.5)
[2024-10-28 13:15] LABS: BUN 21 mg/dl (9-23); SGPT/ALT 16 U/L (5-49)
[2024-10-28] MEDS ORDERED: MG-AL HYDROXIDE/SIMETICONE 30 ML UDC PO STA (14:09)
[2024-10-28] MEDS ORDERED: Dicyclomine Hydrochloride 20 MG/10 ML OSYR PO STA (14:09)
== END 2024-10-28 15:41 | disposition home or self-care (01) ==
LOC: ED 12:06
PROVIDERS: Nurse Practitioner Family
DX: K21.9 Gastro-esophageal reflux disease without esophagitis (principal); I10 Essential (primary) hypertension; E78.5 Hyperlipidemia, unspecified; J45.909 Unspecified asthma, uncomplicated; E11.9 Type 2 diabetes mellitus without complications; G43.909 Migraine, unspecified, not intractable, without status migrainosus; F17.210 Nicotine dependence, cigarettes, uncomplicated; Z79.82 Long term (current) use of aspirin; Z79.4 Long term (current) use of insulin; Z79.899 Other long term (current) drug therapy; Z99.3 Dependence on wheelchair; Z88.5 Allergy status to narcotic agent; Z88.6 Allergy status to analgesic agent; Z88.8 Allergy status to other drugs, medicaments and biological substances; Z91.041 Radiographic dye allergy status; Z98.890 Other specified postprocedural states

== ENCOUNTER 2024-12-11 16:10 | Emergency (ER) | payer OTHER ==
[~2024-12-11] VITALS: Ht 157.4 cm; Wt 99.8 kg
[2024-12-11] MEDS ORDERED: SODIUM CHLORIDE 0.9% 500 ML IV ONE (17:45)
[2024-12-11] MEDS ORDERED: Metoclopramide Hydrochloride 10 MG/2 ML VIAL IV ONE (17:45)
[2024-12-11] MEDS ORDERED: diphenhydrAMINE hydrochloride 50 MG/ML VIAL IV ONE (17:50)
[2024-12-11] MEDS ORDERED: Ondansetron Hydrochloride 4 MG/2 ML VIAL IV ONE (17:50)
[2024-12-11 18:16] LABS: BASO # 0.1 10*3/uL (0.0-0.1); BASO % 0.6 % (0.0-1.0); EOS # 0.4 10*3/uL (0.0-0.4); EOS % 3.2 % (1.0-4.0); MEAN CELL VOLUME 81.1 fl (81.0-99.0); MEAN CORPUSCULAR HGB 25.1 pg (27.0-31.0); MEAN PLATELET VOLUME 9.5 fl (9.6-12.3); MONO # 0.8 10*3/uL (0.1-1.0); MONO % 6.9 % (3.0-9.0); NEUT # 7.9 10*3/uL (2.3-7.9); NEUT % 72.4 % (47.0-73.0); NUCLEATED RED BLOOD CELL 0.0 % (0.0-0.0); NUCLEATED RED BLOOD CELL 0.0 10*3/uL (0.0-0.0); PLATELET COUNT AUTOMATED 368 10*3/uL (130-400); RED CELL DISTRI WIDTH 15.2 % (0-14.5)
[2024-12-11 18:36] LABS: BUN 17 mg/dl (9-23); SGPT/ALT 16 U/L (5-49)
[2024-12-11 19:02] LABS: BILIRUBIN Negative (Negative); BLOOD Negative (Negative); CLARITY Clear (Clear); COLOR Yellow (Yellow); KETONE Negative (Negative); LEUKO ESTERASE 2+ (Negative); NITRITE Negative (Negative); PH 5.5 (4.5-8.0); SPECIFIC GRAVITY 1.015 (1.001-1.030); UROBILINOGEN 0.2 E.U./dl (0.0-1.0)
[2024-12-11 19:13] LABS: BACTERIA 1+; RBC 0-2 rbc/hpf (0-2); WBC 16-20 wbc/hpf (0-5)
[2024-12-11] MEDS ORDERED: Potassium Bicarbonate/Potass 25 MEQ TAB PO ONE (19:25)
[2024-12-11] MEDS ORDERED: MACROBID100 M1 PO (19:27)
[2024-12-11] MEDS ORDERED: Ondansetron4 MG PO (19:27)
[2024-12-11] MEDS ORDERED: REGLAN10 M1 PO (19:27)
== END 2024-12-11 20:01 | disposition home or self-care (01) ==
LOC: ED 16:10
PROVIDERS: Emergency Medicine
DX: N39.0 Urinary tract infection, site not specified (principal); E11.43 Type 2 diabetes mellitus with diabetic autonomic (poly)neuropathy; K31.84 Gastroparesis; R10.13 Epigastric pain; R10.12 Left upper quadrant pain; F17.200 Nicotine dependence, unspecified, uncomplicated; Z91.041 Radiographic dye allergy status; Z88.2 Allergy status to sulfonamides; Z88.6 Allergy status to analgesic agent; Z88.5 Allergy status to narcotic agent; Z88.8 Allergy status to other drugs, medicaments and biological substances; Z79.899 Other long term (current) drug therapy; Z79.82 Long term (current) use of aspirin; Z79.4 Long term (current) use of insulin; Z98.890 Other specified postprocedural states; Z96.651 Presence of right artificial knee joint

== ENCOUNTER 2024-12-13 12:26 | Emergency (ER) | payer OTHER ==
[~2024-12-13] VITALS: Ht 157.4 cm; Wt 99.8 kg
[~2024-12-13 12:26] MED LIST changes: +MACROBID100 M1 PO; +Ondansetron4 MG PO; +REGLAN10 M1 PO
[2024-12-13] MEDS ORDERED: diphenhydrAMINE hydrochloride 50 MG/ML VIAL IV ONE (12:30)
[2024-12-13] MEDS ORDERED: MAGNESIUM SULFATE 50 ML IV ONE (12:30)
[2024-12-13 12:50] LABS: BASO # 0.1 10*3/uL (0.0-0.1); BASO % 0.8 % (0.0-1.0); EOS # 0.5 10*3/uL (0.0-0.4); EOS % 5.1 % (1.0-4.0); MEAN CELL VOLUME 80.0 fl (81.0-99.0); MEAN CORPUSCULAR HGB 24.8 pg (27.0-31.0); MEAN PLATELET VOLUME 9.2 fl (9.6-12.3); MONO # 0.6 10*3/uL (0.1-1.0); MONO % 5.3 % (3.0-9.0); NEUT # 7.6 10*3/uL (2.3-7.9); NEUT % 73.7 % (47.0-73.0); NUCLEATED RED BLOOD CELL 0.0 % (0.0-0.0); NUCLEATED RED BLOOD CELL 0.0 10*3/uL (0.0-0.0); PLATELET COUNT AUTOMATED 358 10*3/uL (130-400); RED CELL DISTRI WIDTH 15.1 % (0-14.5)
[2024-12-13 13:11] LABS: BUN 18 mg/dl (9-23)
[2024-12-13] MEDS ORDERED: Water, Sterile 10 ML VIAL ONE (13:26)
[2024-12-13] MEDS ORDERED: CIPRO500 MG PO (14:01)
[2024-12-13] MEDS ORDERED: PREDNISONE20 M1 PO (14:01)
== END 2024-12-13 14:08 | disposition home or self-care (01) ==
LOC: ED 12:26
PROVIDERS: Emergency Medicine
DX: J44.1 Chronic obstructive pulmonary disease with (acute) exacerbation (principal); I10 Essential (primary) hypertension; E11.9 Type 2 diabetes mellitus without complications; F32.A Depression, unspecified; N39.0 Urinary tract infection, site not specified; Z79.899 Other long term (current) drug therapy; Z88.2 Allergy status to sulfonamides; Z88.5 Allergy status to narcotic agent; Z88.6 Allergy status to analgesic agent; Z88.8 Allergy status to other drugs, medicaments and biological substances; Z91.041 Radiographic dye allergy status; Z90.710 Acquired absence of both cervix and uterus; Z98.890 Other specified postprocedural states

== ENCOUNTER → 2025-01-16 | Outpatient (CLI) | payer OTHER ==
[~2025-01-16] MED LIST changes: +PREDNISONE20 M1 PO
== END | disposition home or self-care (01) ==
LOC: LAB 09:52
PROVIDERS: ATTEND Physician Assistant
DX: R19.7 Diarrhea, unspecified (principal); R10.11 Right upper quadrant pain

== ENCOUNTER 2025-02-17 16:11 | Emergency (ER) | payer OTHER ==
[~2025-02-17] VITALS: Ht 157.4 cm; Wt 102.1 kg
== END 2025-02-17 18:20 | disposition home or self-care (01) ==
LOC: ED 16:11
DX: M79.604 Pain in right leg (principal); R22.41 Localized swelling, mass and lump, right lower limb; F32.A Depression, unspecified; I10 Essential (primary) hypertension; E11.9 Type 2 diabetes mellitus without complications; F17.210 Nicotine dependence, cigarettes, uncomplicated; Z98.890 Other specified postprocedural states; Z90.710 Acquired absence of both cervix and uterus; Z96.651 Presence of right artificial knee joint; Z88.1 Allergy status to other antibiotic agents; Z88.2 Allergy status to sulfonamides; Z88.5 Allergy status to narcotic agent; Z88.8 Allergy status to other drugs, medicaments and biological substances

== ENCOUNTER 2025-02-22 19:04 | Emergency (ER) | payer OTHER ==
[~2025-02-22] VITALS: Ht 157.4 cm; Wt 131.5 kg
[2025-02-22] MEDS ORDERED: diphenhydrAMINE hydrochloride 50 MG/ML VIAL IV ONE (22:40)
[2025-02-22 23:06] LABS: BASO # 0.1 10*3/uL (0.0-0.1); BASO % 0.7 % (0.0-1.0); EOS # 0.3 10*3/uL (0.0-0.4); EOS % 3.2 % (1.0-4.0); MEAN CELL VOLUME 81.9 fl (81.0-99.0); MEAN CORPUSCULAR HGB 24.5 pg (27.0-31.0); MEAN PLATELET VOLUME 9.7 fl (9.6-12.3); MONO # 0.9 10*3/uL (0.1-1.0); MONO % 8.3 % (3.0-9.0); NEUT # 6.7 10*3/uL (2.3-7.9); NEUT % 65.7 % (47.0-73.0); NUCLEATED RED BLOOD CELL 0.0 % (0.0-0.0); NUCLEATED RED BLOOD CELL 0.0 10*3/uL (0.0-0.0); PLATELET COUNT AUTOMATED 370 10*3/uL (130-400); RED CELL DISTRI WIDTH 14.9 % (0-14.5)
[2025-02-22] MEDS ORDERED: Iodixanol 320 100 ML VIAL IV ONE (23:25)
[2025-02-22] MEDS ORDERED: SODIUM CHLORIDE 0.9% 100 ML BAG IV ONE (23:25)
[2025-02-22 23:29] LABS: BUN 16 mg/dl (9-23); SGPT/ALT 19 U/L (5-49)
[2025-02-22] MEDS ORDERED: SODIUM CHLORIDE 0.9% 100 ML IV ONE (23:49)
[2025-02-22] MEDS ORDERED: Iodixanol 320 100 ML VIAL ONE (23:49)
== END 2025-02-23 02:28 | disposition home or self-care (01) ==
LOC: ED 19:04
PROVIDERS: Nurse Practitioner
DX: M25.561 Pain in right knee (principal); E11.9 Type 2 diabetes mellitus without complications; I10 Essential (primary) hypertension; F32.A Depression, unspecified; G47.30 Sleep apnea, unspecified; J44.89 Other specified chronic obstructive pulmonary disease; F17.210 Nicotine dependence, cigarettes, uncomplicated; Z98.890 Other specified postprocedural states; Z90.710 Acquired absence of both cervix and uterus; Z88.2 Allergy status to sulfonamides; Z88.1 Allergy status to other antibiotic agents; Z88.5 Allergy status to narcotic agent; Z88.8 Allergy status to other drugs, medicaments and biological substances; Z87.442 Personal history of urinary calculi